=== PATIENT | female | born 1955 ===

== ENCOUNTER → 2021-08-10 | Outpatient (CLI) | payer MEDICARE | LOC: MC.RAD 10:49 | DX: Z12.31 Encounter for screening mammogram for malignant neoplasm of breast (principal); N63.10 Unspecified lump in the right breast, unspecified quadrant ==

== ENCOUNTER → 2021-08-17 | Outpatient (CLI) | payer MEDICARE | LOC: MC.RAD 12:39 | DX: N63.10 Unspecified lump in the right breast, unspecified quadrant (principal) ==

== ENCOUNTER → 2021-08-31 | Outpatient (CLI) | payer MEDICARE | LOC: MC.RAD 09:30 | DX: N60.01 Solitary cyst of right breast (principal) ==